=== PATIENT | female | born 1975 | race Caucasian/White ===

== ENCOUNTER → 2022-12-02 11:23 | Outpatient (BNVA) | payer MEDICAID, SELFPAY | PROVIDERS: PCP Internal Medicine; Visit Provider Nurse Practitioner Family | DX: Z13.89 Encounter for screening for other disorder (principal) ==

== ENCOUNTER 2024-12-26 11:34 | Outpatient (REF) | payer SELFPAY ==
--- OUTSIDE RECORDS SUMMARY | 2024-12-26 13:21 | XMS_ITS | Encounter Summary ---
Author Organization [employer] Address [address] [place] [address] [place] [address] Care Team Providers Care Product Safety And Standards Engineer Name Role Phone Laura Rodriguez MD Primary Care Provider Reason for Visit * Reason Onset Date Comments Appointment Request 01/07/2023 Encounter Details Date Type Department Care Team (Late Contact Info) Description 01/07/2023 Telephone [facility] MED & PEDS [address] [place] [address] Laura Rodriguez MD [address] [place] [address] Appointment Request Social History Tobacco Use Types Packs/Day Years Used Date Smoking Tobacco: Never Assessed Comments Unknown Sex and Gender Information Value Date Recorded Sex Assigned at Female 08/18/2022 10:38 AM EDT Legal Sex Female 10:38 AM EDT Gender Identity Female 08/18/2022 10:38 AM EDT Sexual Orientation Straight 08/18/2022 10 :38 AM EDT documented as of this encounter Miscellaneous Notes * Telephone Encounter - Maria C Hermosillo - 01/07/2023 4:18 PM EDT Tc from pt requesting to r/s appt for a Follow up on 01/12/2023. Orchestrator tried booking and pt prefers mondays and Thursday. Please contact pt at [phone] Yakut Speaker documented in this encounter Plan of Treatment Upcoming Encounters Date Type Department Care Team (Late st Contact Info) Description 01/11/2025 2:30 PM EDT Clinical Support [facility] PED[facility] [address] [place] [address] documented as of this encounter Visit Diagnoses Not on filedocumented in this encounter Care Teams Product Safety And Standards Engineer Relationship Specialty Start Date End Date Laura Rodriguez MD [address] [place] [address] PCP - General Internal Medicine 08/06/21 documented as of this encounter
--- OUTSIDE RECORDS SUMMARY | 2024-12-26 13:21 | XMS_ITS | Encounter Summary ---
Author Organization [facility] Address [address] [place] [address] [address] [place] [id number] Care Team Providers Care Semiconductor Lab Technician Name Role Phone Laura Rodriguez MD Primary Care Provider Encounter Details Date Type Department Care Team (Late st Contact Info) Description 01/14/2023 Orders Only [facility] MED & PEDS [address] [place] [address] Alyssa Ryan LPN Social History Tobacco Use Types Packs/Day Years Used Date Smoking Tobacco: Never Assessed Comments Unknown Sex and Gender Information Value Date Recorded Sex Assigned at Female 08/18/2022 10:38 AM EDT Legal Sex Female 10:38 AM EDT Gender Identity Female 08/18/2022 10:38 AM EDT Sexual Orientation Straight 08/18/2022 10 :38 AM EDT documented as of this encounter Plan of Treatment Upcoming Encounters Date Type Department Care Team (Late st Contact Info) Description 01/11/2025 2:30 PM EDT Clinical Support [facility] MED & PEDS [address] [place] [address] documented as of this encounter Visit Diagnoses Not on filedocumented in this encounter Care Teams Semiconductor Lab Technician Relationship Specialty Start Date End Date Laura Rodriguez MD [address] [place] [address] PCP - General Internal Medicine 08/06/21 documented as of this encounter
--- OUTSIDE RECORDS SUMMARY | 2024-12-26 13:21 | XMS_ITS | Encounter Summary ---
Author Organization [employer] [facility] Address [address] [place] [address] Care Team Providers Care Shirt Cleaner Name Role Phone Laura Rodriguez MD Primary Care Provider Reason for Visit * Reason Comments Med Refill Encounter Details Date Type Department Care Team (Late st Contact Info) Description 04/19/2024 Refill [facility] MED & PEDS [address] [place] [address] Laura Rodriguez MD [address] [place] [address] Seasonal allergies Social History Tobacco Use Types Packs/Day Years Used Date Smoking Tobacco: Never Passive Smoke Exposure: Never Smokeless Tobacco: Never Comments Unknown Sex and Gender Information Value [...] Description 01/11/2025 2:30 PM EDT Clinical Support [facility] MED & PEDS [address] [place] [address] documented as of this encounter Visit Diagnoses Diagnosis Seasonal allergies Allergic rhinitis, cause unspecified documented in this encounter Care Teams Shirt Cleaner Relationship Specialty Start Date End Date Laura Rodriguez MD [address] [place] [address] PCP - General Internal Medicine 08/06/21 documented as of this encounter
--- OUTSIDE RECORDS SUMMARY | 2024-12-26 13:21 | XMS_ITS | Encounter Summary ---
Author Organization [employer] [facility] Address [address] [place] [address] 7 [place] [address] Care Team Providers Care Warehouse Material Handler Name Role Phone Laura Rodriguez MD Primary Care Provider Reason for Visit * Reason Onset Date Comments appt cx will call rs 07/22/2024 Encounter Details Date Type Department Care Team (Late st Contact Info) Description 07/22/2024 Telephone [facility] [address] [place] [address] Antoinette Nix appt cx will call rs Social History Tobacco Use Types Packs/Day Years [...] encounter Miscellaneous Notes * Telephone Encounter - Candace Su - 07/22/2024 9:17 AM EDT Patient cancelled appt scheduled for comp on Antoinette schedule for 07/25 due to emergency trip. Per [facility] has to call back to if they are looking for 2pm. Perio spots are not open in advance. documented in this encounter Plan of Treatment Upcoming Encounters Date Type Department Care Team (Late st Contact Info) Description 01/11/2025 2:30 PM EDT Clinical Support [facility] MED [facility]ED[facility] [address] [place] [address] documented as of this encounter Visit Diagnoses Not on filedocumented in this encounter Care Teams Warehouse Material Handler Relationship Specialty Start Date End Date Laura Rodriguez MD [address] [place] [address] PCP - General Internal Medicine 08/06/21 documented as of this encounter
--- OUTSIDE RECORDS SUMMARY | 2024-12-26 13:21 | XMS_ITS | Encounter Summary ---
Author Organization [employer] Address [address] [place] [address] [place] [address] Care Team Providers Care Life Trainer Name Role Phone Laura Rodriguez MD Primary Care Provider Reason for Visit * Reason Comments Pre-visit Planning Pre visit planning L VM Encounter Details Date Type Department Care Team (Late st Contact Info) Description 11/30/2024 Patient Outreach [facility] MED[facility]INE [address] [place] [address] Laura Rodriguez MD [address] [place] [address] Pre-visit Planning (Pre visit planning LVM ) Social History Tobacco Use Types Packs/Day Years Used Date Smoking Tobacco: Never Passive Smoke Exposure: Never Smokeless Tobacco: Never Comments Unknown Sex and Gender Information Value Date Recorded Sex Assigned at Female 08/18/2022 10:38 AM EDT Legal Sex Female 10:38 AM EDT Gender Identity Female 08/18/2022 10:38 AM EDT Sexual Orientation Straight 08/18/2022 10 :38 AM EDT documented as of this encounter Progress Notes * Glenis Albert - 11/30/2024 11:46 AM EST CC Glenis Silva placed outbound call to patient to complete pre-visit planning. No answer at this time.Patient name and were not confirmed. CC left voicemail requesting return call. Direct contact information provided. documented in this encounter Plan of Treatment Upcoming Encounters Date Type Department Care Team (Late st Contact Info) Description 01/11/2025 2:30 PM EDT Clinical Support [facility] MED & PEDS [address] [place] [address] documented as of this encounter Visit Diagnoses Not on filedocumented in this encounter Care Teams Life Trainer Relationship Specialty Start Date End Date Laura Rodriguez MD [address] [place] [address] PCP - General Internal Medicine 08/06/21 documented as of this encounter
--- OUTSIDE RECORDS SUMMARY | 2024-12-26 13:21 | XMS_ITS | Encounter Summary ---
Author Organization [employer] [facility] Address [address] [place] [address] [address] [place] [address] Care Team Providers Care Project Reservoir Engineer Name Role Phone Laura Rodriguez MD Primary Care Provider Reason for Referral * Imaging (Routine) - Closed Specialty Diagnoses / Procedures Referred By Contac t Referred To Contact Radiology Diagnoses Encounter for screening mammogram for malignant neoplasm of breast Procedures BI Mammogram Screening Tomosynthesis Bilateral Laura Rodriguez MD [address] [place] [address] Phone: tel: fax: [address] Phone: tel: fax: Referral ID Status Reason Start Date Expiration Date Visits Re quested Visits Authorized [id number] Closed 12/14/2024 12/14/2025 1 1 Reason for Visit * Reason Comments Annual Exam Encounter Details Date Type Department Care Team (Late st Contact Info) Description 12/14/2024 10:45 AM EST Office Visit [facility] MED & PEDS [address] [place] [address] Laura Rodriguez MD [address] [place] [address] Obesity (BMI 30-39.9) (Primary Dx); Physical exam, annual; Primary hypertension; Seasonal allergies; Seasonal allergic reaction; Screening for colon cancer; Encounter for screening mammogram for malignant neoplasm of breast; Encounter for immunization Social History Tobacco Use Types Packs/Day Years Used Date Smoking Tobacco: Never Passive Smoke Exposure: Never Smokeless Tobacco: Never Tobacco Cessation:Counseling Given: No Alcohol Answer Date Recorded Q1: How often do you have a drink containing alc ohol? 2 12/14/2024 Q2: How many drinks containi ng alcohol do you have on a typical day when you are drinking? 0 12/14/2024 Q3: How often do you have six or more drinks on one occasion? 2 12/14/2024 Depression Answer Date Recorded Patient Health Questionnaire-9 Score 0 12/14/2024 Patient Health Questionnaire-9 Score 0 12/14/2024 Last PHQ-9: Questionnaire Data Not on file 0 12/14/2024 Housing Stability Answer Date Recorded What is your housing situation today? I have jody silver 12/14/[address] you li ve. Do you have problems with any of the following? None of the above 12/14/2024 Food Insecurity Answer Date Recorded Within the past 12 months, y ou worried that your food would run out before you got money to buy more: Never True 12/14/2024 Within the past 12 months,th e food you bought just didn't last and you didn't have enough money to get more: Never True Transportation Answer Date Recorded In the past 12 months, has l ack of transportation kept you from medical appts, meetings, work or from getting things needed for daily living? No 12/14/2024 Utilities Answer Date Recorded In the past 12 months, has t he electric, gas, oil or water company threatened to shut off services in your home? No 12/14/2024 Depression Answer Date Recorded Patient Health Questionnaire-2 Score 0 12/14/2024 Internet Access Answer Date Recorded Internet Access Q1 Yes 12/14/2024 Internet Access Q2 Not on file 12/14/2024 Comments Unknown Sex and Gender Information Value Date Recorded Sex Assigned at Female 08/18/2022 10:38 AM EDT Legal Sex Female 10:38 AM EDT Gender Identity Female 08/18/2022 10:38 AM EDT Sexual Orientation Straight 08/18/2022 10 :38 AM EDT documented as of this encounter Last Filed Vital Signs Vital Sign Reading Time Taken Comments Blood Pressure 151/81 12/14/2024 11:02 AM EST Pulse 78 12/14/2024 11:02 AM EST Temperature 36.6 ??C (97.9 ??F) 12/14/2024 11:[address] Respiratory Rate 20 12/14/2024 11:02 AM EST Oxygen Saturation 98% 12/14/2024 11:02 AM EST Inhaled Oxygen Concentration - - Weight 71.7 kg (158 lb) 12/14/2024 11:02 AM EST Height 149.9 cm (4' 11 ) 12/14/2024 11:02 AM EST Body Mass Index 31.91 12/14/2024 11:02 AM EST documented in this encounter Progress Notes * Laura Rodriguez MD - 12/14/2024 10:45 AM EST Subjective Patient ID: Adriana Burks is a 48 y.o. female who presents for Annual Exam. HPI Pt is doing overall well. No recent acute event. Has been off her BP medication for several months. Patient Active Problem List Diagnosis Primary hypertension Seasonal allergic reaction Current Outpatient Medications on File Prior to Visit Medication Sig Dispense Refill Ketotifen Fumarate (Eye Itch Relief) 0.035 % solution Administer 1 drop into both eyes [address] ONE DROP IN EACH EYE TWICE DAILY FOR 10 DAYS 5 mL 0 [DISCONTINUED] hydroCHLOROthiazide (Microzide) 12.5 MG capsule TAKE ONE CAPSULE EVERY DAY 90 capsule 1 [DISCONTINUED] loratadine (Claritin) 10 MG tablet TAKE ONE TABLET EVERY MORNING 90 tablet 1 No current facility-administered medications on file prior to visit. No Known Allergies Review of Systems Constitutional: Negative for activity change, appetite change, chills and diaphoresis. HENT: Negative for dental problem, drooling, ear discharge, ear pain and hearing loss. Eyes: Negative for pain, discharge and itching. Respiratory: Negative for cough, choking and chest tightness. Cardiovascular: Negative for chest pain and leg swelling. Gastrointestinal: Negative for blood in stool and diarrhea. Genitourinary: Negative for difficulty urinating, dyspareunia, dysuria, enuresis, flank pain, frequency and genital sores. Musculoskeletal: Negative for arthralgias, gait problem and joint swelling. Skin: Negative for pallor. Neurological: Negative for dizziness, seizures, speech difficulty, light- headedness and numbness. Psychiatric/Behavioral: Negative for behavioral problems, confusion and decreased concentration. Objective Physical Exam Constitutional: General: She is not in acute distress. Appearance: Normal appearance. She is not ill-appearing, toxic-appearing or diaphoretic. Cardiovascular: Rate and Rhythm: Normal rate and regular rhythm. Pulmonary: Effort: Pulmonary effort is normal. Musculoskeletal: General: Normal range of motion. Cervical back: Normal range of motion. Skin: General: Skin is warm. Neurological: General: No focal deficit present. Mental Status: She is alert. Psychiatric: Mood and Affect: Mood normal. Assessment/Plan Diagnoses and all orders for this visit: Obesity (BMI 30-39.9) - CBC auto differential; Future - Comprehensive Metabolic Panel; Future - Lipid Panel, Standard; Future - Hepatitis C Viral RNA, Quantitative, Real-Time PCR; Future - HIV-1/2 Antigen and Antibodies, Fourth Generation, with Reflexes; Future - TSH W/Reflex to FT4; Future Discussed calorie deficit, recommended reduction of 20-30% of maintenance calories; new car driver referral offered. Recommended to decrease soda and sugary beverage consumption. Recommended at least 20 g per meal of protein to assist with satiety. Recommended at least 150 min/week of moderate intensity exercise. Physical exam, annual Comments: Normal exam Pt is to maintain a healthy and balanced diet Primary hypertension Comments: uncontrolled. Poor compliance to medication Pt is to resume her HCTZ DASH diet. Orders: - hydroCHLOROthiazide (Microzide) 12.5 MG capsule; Take 1 capsule (12.5 mg) by mouth Once per day. - CBC auto differential; Future - Comprehensive Metabolic Panel; Future - Lipid Panel, Standard; Future - Hepatitis C Viral RNA, Quantitative, Real-Time PCR; Future - HIV-1/2 Antigen and Antibodies, Fourth Generation, with Reflexes; Future - TSH W/Reflex to FT4; Future Seasonal allergies Comments: Advised to contact the office in 2 days if no improvement. Orders: - loratadine (Claritin) 10 MG tablet; Take 1 tablet (10 mg) by mouth in the morning. Seasonal allergic reaction Screening for colon cancer - Cologuard?? colon cancer screening; Future Encounter for screening mammogram for malignant neoplasm of breast - BI Mammogram Screening Tomosynthesis Bilateral; Future Encounter for immunization - PCV-20 VACCINE 6 wks + - TDAP VACCINE 7 yrs + documented in this encounter Plan of Treatment Upcoming Encounters Date Type Department Care Team (Late st Contact Info) Description 01/11/2025 2:30 PM EDT Clinical Support [facility] MED & PEDS [address] [place] [address] Scheduled Orders Name Type Priority Associated Diagnoses Orde r Schedule CBC auto differential Lab Routine Primary hypertension Obesity (BMI 30-39.9) Expected: 12/14/2024 (Approximate), Expires: 12/14/2025 Comprehensive Metabolic Panel Lab Routine Primary hypertension Obesity (BMI 30-39.9) Expected: 12/14/2024 (Approximate), Expires: 12/14/2025 Lipid Panel, Standard Lab Routine Primary hypertension Obesity (BMI 30-39.9) Expected: 12/14/2024 (Approximate), Expires: 12/14/2025 Hepatitis C Viral RNA, Quantitative, Real-Time PCR Lab Routine Primary hypertension Obesity (BMI 30-39.9) Expected: 12/14/2024 (Approximate), Expires: 12/14/2025 HIV-1/2 Antigen and Antibodies, Fourth Generation, with Reflexes Lab Routine Primary hypertension Obesity (BMI 30-39.9) Expected: 12/14/2024 (Approximate), Expires: 12/14/2025 TSH W/Reflex to FT4 Lab Routine Primary hypertension Obesity (BMI 30-39.9) Expected: 12/14/2024 (Approximate), Expires: 12/14/2025 Cologuard?? colon cancer screening Lab Routine Screening for colon cancer Expected: 12/14/2024 (Approximate), Expires: 12/14/2025 BI Mammogram Screening Tomosynthesis Bilateral Imaging Routine Encounter for screening mammogram for malignant neoplasm of breast Expected: 12/14/2024, Expires: 02/11/2026 documented as of this encounter Visit Diagnoses Diagnosis Obesity (BMI 30-39.9)- Primary Physical exam, annual Primary hypertension Unspecified essential hypertension Seasonal allergies Allergic rhinitis, cause unspecified Seasonal allergic reaction Allergic rhinitis, cause unspecified Screening for colon cancer Special screening for malignant neoplasms, colon Encounter for screening mammogram for malignant neoplasm of breast Encounter for immunization documented in this encounter Additional Health Concerns Assessment Noted Time PHQ-9 Depression Total Score: 0 12/14/19 25 11:04 AM EST documented as of this encounter Care Teams Project Reservoir Engineer Relationship Specialty Start Date End Date Laura Rodriguez MD [address] [place] [id number] PCP - General Internal Medicine 08/06/21 documented as of this encounter
--- OUTSIDE RECORDS SUMMARY | 2024-12-26 13:21 | XMS_ITS | Encounter Summary ---
Author Organization [employer] [facility] Address [address] [place] [address] Care Team Providers Care Fabrication Technician Name Role Phone Laura Rodriguez MD Primary Care Provider Reason for Visit * Reason Comments Med Refill Encounter Details Date Type Department Care Team (Late st Contact Info) Description 11/02/[address] [facility] MED & PEDS [address] [place] [address] Laura Rodriguez MD [address] [place] [address] Primary hypertension Social History Tobacco Use Types Packs/Day Years [...] Description 01/11/2025 2:30 PM EDT Clinical Support [facility] MED & PEDS [address] [place] [address] documented as of this encounter Visit Diagnoses Diagnosis Primary hypertension Unspecified essential hypertension documented in this encounter Care Teams Fabrication Technician Relationship Specialty Start Date End Date Laura Rodriguez MD [address] [place] [address] PCP - General Internal Medicine 08/06/21 documented as of this encounter
--- OUTSIDE RECORDS SUMMARY | 2024-12-26 13:21 | XMS_ITS | Encounter Summary ---
Author Organization [employer] [facility] Address [address] [facility] [address] [place] [address] Care Team Providers Care Sock Mender Name Role Phone Laura Rodriguez MD Primary Care Provider Encounter Details Date Type Department Care Team (Latest Contact Info) Description 12/14/2024 Travel Social History Tobacco Use Types Packs/Day Years Used Date Smoking Tobacco: Never Passive Smoke Exposure: Never Smokeless Tobacco: Never Alcohol Answer Date Recorded Q1: How often [...] Upcoming Encounters Date Type Department Care Team ([facility] st Contact Info) Description 01/11/2025 2:30 PM EDT Clinical Support [facility] MED & PEDS [address] [place] [address] documented as of this encounter Visit Diagnoses Not on filedocumented in this encounter Additional Health Concerns Assessment Noted Time PHQ-9 Depression Total Score: 0 12/14/19 25 11:04 AM EST documented as of this encounter Care Teams Sock Mender Relationship Specialty Start Date End Date Laura Rodriguez MD [address] [place] [address] PCP - General Internal Medicine 08/06/21 documented as of this encounter
--- OUTSIDE RECORDS SUMMARY | 2024-12-26 13:21 | XMS_ITS | Clinical Summary ---
Author Organization [facility] Address [address] [place] [address] Care Team Providers Care Bedspread Inspector Name Role Phone Laura Rodriguez MD Primary Care Provider [phone] Allergies No known active allergies Medications Ketotifen Fumarate (Eye Itch Relief) 0.035 % solution Administer 1 drop into both eyes [address] ONE DROP IN EACH EYE TWICE DAILY FOR 10 DAYS 5 mL 04/20/20 24 Active hydroCHLOROthia zide (Microzide) 12.5 MG capsuleIndicati ons:Primary hypertension Take 1 capsule (12.5 mg) by mouth Once per day. 90 capsule 1 12/14/19 25 Active loratadine (Claritin) 10 MG tabletIndicatio ns:Seasonal allergies Take 1 tablet (10 mg) by mouth in the morning. 90 tablet 1 12/14/19 25 Active hydroCHLOROthia zide (Microzide) 12.5 MG capsuleIndicati ons:Primary hypertension TAKE ONE CAPSULE EVERY DAY 90 capsule 1 04/20/20 24 025 Discontinued(R eorder (will not trigger notification to Pharmacy)) loratadine (Claritin) 10 MG tabletIndicatio ns:Seasonal allergies TAKE ONE TABLET EVERY MORNING 90 tablet 1 04/20/20 24 025 Discontinued(R eorder (will not trigger notification to Pharmacy)) loratadine (Claritin) 10 MG tabletIndicatio ns:Seasonal allergies Take 1 tablet (10 mg) by mouth in the morning. 90 tablet 1 12/14/19 25 025 Discontinued(R eorder (will not trigger notification to Pharmacy)) Active Problems Problem Noted Date Diagnosed Date Primary hypertension 12/14/2024 Seasonal allergic reaction 12/14/2024 Encounters Date Type Department Care Team Description 12/14/2024 10:45 AM EST Office Visit [facility] [address] [place] [address] Laura Rodriguez MD Obesity (BMI 30-39.9) (Primary Dx); Physical exam, annual; Primary hypertension; Seasonal allergies; Seasonal allergic reaction; Screening for colon cancer; Encounter for screening mammogram for malignant neoplasm of breast; Encounter for immunization 12/14/2024 Travel 12/12/2024 Telephone [facility] [address] [place] [address] Laura Rodriguez MD chart prep 11/30/2024 Patient Outreach [facility] [address] [place], [place] [phone] Laura Rodriguez MD Pre-visit Planning (Pre visit planning LVM ) 11/02/2024 Refill [facility] [address] [place] [address] Laura Rodriguez MD Primary hypertension from Last 3 Months Immunizations Name Administration Dates Next Due Pneumococcal Conjugate PCV 20 12/14/2024 Tdap 12/14/2024 Family History Medical History Relation Name Comments chagas disease Father Hypertension Mother Relation Name Status Comments Father Mother Social History Tobacco Use Types Packs/Day Years [...] Orientation Straight 08/18/2022 10 :38 AM EDT Last Filed Vital Signs Vital Sign Reading [...] Mass Index 31.91 12/14/2024 11:02 AM EST Plan of Treatment Upcoming Encounters Date Type Department Care Team (Late st Contact Info) Description 01/11/2025 2:30 PM EDT Clinical Support [facility] [address] [place] [address] Health Maintenance Due Date Last Done Comments CT Colonography 1973 Colonoscopy 1973 Colorectal Cancer Screening 1973 Dental Oral Exam 1973 Dental Prophylaxis 1973 Dental X-Ray: Bitewings 1973 Dental X-Ray: Full Mouth 1973 FIT DNA/Cologuard 1973 FIT 1973 FOBT 1973 HIV Screening 1973 Sigmoidoscopy 1973 Family Planning (PISQ) 1988 Hepatitis C Screening 12/22/1991 Hepatitis B Vaccines (1 of 3 - 19+ 3-dose series) 1992 Pap Smear 1994 Cervical Cancer Screening 12/22/2003 HPV/Cotest 12/22/2003 Zoster Vaccines (1 of 2) 12/22/2023 COVID-19 Vaccine ( - 2023-2 5 season) 2024 Influenza Vaccine (#1) 2024 Mammogram 10/06/2024 10/06/2022, 10/06/2022 Alcohol/Substance Use Screening 12/14/2025 12/14/2024 Depression Screening 12/14/2025 12/14/2024, 12/14/2024 SDOH Screening 12/14/2025 12/14/2024 Tobacco Screening 12/14/2025 12/14/2024 Lipid Panel 03/18/2027 03/18/2022 DTaP/Tdap/Td Vaccines (2 - T d or Tdap) 12/14/2034 12/14/2024 RSV Patients and Patients Aged 60 years or older (1 - 1-dose 75+ series) 2048 Pneumococcal Vaccine: 50+ Years Completed 12/14/2024 HIB Vaccines Aged Out No longer eligi ble based on patient's age to complete this topic HPV Vaccines Aged Out No longer eligi ble based on patient's age to complete this topic Hepatitis A Vaccines Aged Out No long er eligible based on patient's age to complete this topic IPV Vaccines Aged Out No longer eligi ble based on patient's age to complete this topic Meningococcal Vaccine Aged Out No archana kimberly eligible based on patient's age to complete this topic RSV under 20 months Aged Out No longe r eligible based on patient's age to complete this topic Rotavirus Vaccines Aged Out No longer eligible based on patient's age to complete this topic Procedures Procedure Name Priority Date/Time Associated Diagnosis Comments BI MAMMOGRAM SCREENING TOMOSYNTHESIS BILATERAL Routine 10/06/2022 9:26 AM EST LIPID PANEL, STANDARD Routine 03/18/2022 11:51 AM EDT from Last 3 Months or Most Recently Relevant to Health Maintenance Results * BI Mammogram Screening Tomosynthesis Bilateral (10/06/2022 9:26 AM EST) Anatomical Region Laterality Modality Breast Bilateral Mammography 10/06/2022 9:26 AM EST Narrative 10/07/2022 1:15 PM EST ? [facility] ? [address] ?[place] [address] ? Mammography Report ? Signed ? Patient: Adriana Almendarez ?MR#: [id number] ?? [id number] ? : 1975 ?Acct:[id number] ? Age/Sex: 46 / F ?ADM Date: 10/06/22 ? Loc: HO.MAMMO ? Attending Dr: Laura Rodriguez MD ? Ordering Physician: Laura Rodriguez MD ?Results: 1 ?? Negative ? Date of Service: 10/06/22 ?Follow Up: 1 Year From Orig ?? inal Mammogram ? Procedure(s): MM tomosynthesis screening BI ?? Accession Number(s): [id number] ? cc: Laura Rodriguez MD ? EXAMINATION: ?? MM SCREENING DIGITAL BREAST TOMOSYNTHESIS, BILATERAL ? CLINICAL INFORMATION: ? Screening. Asymptomatic. ? The lifetime risk of breast cancer based on the Tyrer-Cuzick Model is ?? 12%. ? COMPARISON: ?? Mammography: 09/23/2021, outside exam 05/02/2016 ([facility]) ? TECHNIQUE: ?? Digital breast tomosynthesis is performed in both the craniocaudal and ?? mediolateral oblique views along with computer-aided detection (CAD). ?? Synthesized 2D images are generated from the tomosynthesis. ? FINDINGS: ?? There are scattered areas of fibroglandular density (ACR BI-RADS breast ?? composition Category b). ? There are no significant masses, abnormal calcifications, or other ?? abnormalities. ??Parenchymal pattern is similar to prior studies. There ?? is no developing density or architectural abnormality. The axilla and ?? skin contours are unremarkable. No significant changes. ? MM/MM tomosynthesis screening BI ?? IMPRESSION: ?? No mammographic evidence of malignancy. ? ASSESSMENT: ? BI-RADS 1: Negative ? RECOMMENDATION: ?? Routine annual mammography screening. ? This patient's information was entered into a reminder system with a ?? target due date for their next mammogram. ? Dictated By: ?Jesse Pinzon MD ? Signed By: ?<Electronically signed by Jesse Pinzon MD in OV> ?10/07/22 1312 ? DD/ 5 ? TD/TT: ? Stain Sprayer: SAMPSON ? Procedure Note Marcus, Image - 10/31/2022 [facility] [address] [place] [address] [place]. [place], [place] [address] Mammography Report Signed Patient: Adriana Almendarez#: [id number] : 1975Acct:[id number] Age/Sex: 46 / FADM Date: 10/06/22 Loc: [facility] Attending Dr: Laura Rodriguez MD Ordering Physician: Laura Rodriguez MDResults: 1 Negative Date of Service: 10/06/22Follow Up: 1 Year From Orig ina Mammogram Procedure(s): MM tomosynthesis screening BI Accession Number(s): [id number] cc: Laura Rodriguez MD EXAMINATION: MM SCREENING DIGITAL BREAST TOMOSYNTHESIS, BILATERAL CLINICAL INFORMATION: Screening. Asymptomatic. The lifetime risk of breast cancer based on the Tyrer-Cuzick Model is 12%. COMPARISON: Mammography: 09/23/2021, outside exam 05/02/2016 ([facility]) TECHNIQUE: Digital breast tomosynthesis is performed in both the craniocaudal and mediolateral oblique views along with computer-aided detection (CAD). Synthesized 2D images are generated from the tomosynthesis. FINDINGS: There are scattered areas of fibroglandular density (ACR BI-RADS breast composition Category b). There are no significant masses, abnormal calcifications, or other abnormalities. Parenchymal pattern is similar to prior studies. There is no developing density or architectural abnormality. The axilla and skin contours are unremarkable. No significant changes. MM/MM tomosynthesis screening BI IMPRESSION: No mammographic evidence of malignancy. ASSESSMENT: BI-RADS 1: Negative RECOMMENDATION: Routine annual mammography screening. This patient's information was entered into a reminder system with a target due date for their next mammogram. Dictated By: Jesse Pinzon MD Signed By: <Electronically signed by Jesse Pinzon MD in OV> 10/07/22 1312 DD/ 0926 TD/TT: Stain Sprayer: SAMPSON [facility] External Provider IMG BI PROCEDURES Edited Result - Final * (ABNORMAL) LIPID PANEL, STANDARD (03/18/2022 11:51 AM EDT) Chol/HDLC Ratio 5.0(H) <5.0 (calc) [facility] Cholesterol, Total 200(H) <200 mg/dL [facility] HDL Cholesterol 40(L) > OR = 50 mg/dL [facility] LDL Cholesterol 122(H) mg/dL (calc) [facility] Comment: Reference range: <100 ?? Desirable range <100 mg/dL for primary prevention; ?? <70 mg/dL for patients with CHD or diabetic patients ?? with > or = 2 CHD risk factors. ?? LDL-C is now calculated using the Ritesh ?? calculation, which is a validated novel method providing ?? better accuracy than the Friedewald equation in the ?? estimation of LDL-C. ?? Dequan PERRY et al. YOMI. 2013;310(19): 0916-7389 ?? (http://Zagster.4tiitoo/faq/ZZD772) Non-HDL Cholesterol 160(H) <130 mg/dL (calc) [facility] Comment: For patients with diabetes plus 1 major ASCVD risk ?? factor, treating to a non-HDL-C goal of <100 mg/dL ?? (LDL-C of <70 mg/dL) is considered a therapeutic ?? option. Triglycerides 233(H) <150 mg/dL [facility] Comment: ?? If a non-fasting specimen was collected, consider repeat triglyceride testing on a fasting specimen if clinically indicated. ?? Sonja et al. J. of Clin. Lipidol. 2015;9:129-169. ?? 03/18/2022 11:5 1 AM EDT us Ana Caban MD LAB BLOOD ORDERABLES Final Resul t [facility] [address] from Last 3 Months or Most Recently Relevant to Health Maintenance Insurance [employer] [employer] STAND ADULT Care Teams Bedspread Inspector Relationship Specialty Start Date End Date Laura Rodriguez MD [address] [place] [id number] PCP - General Internal Medicine 08/06/21
--- OUTSIDE RECORDS SUMMARY | 2024-12-26 13:21 | XMS_ITS | Encounter Summary ---
Author Organization [facility] Address [address] [place] [address] Care Team Providers Care Bird Cage Assembler Name Role Phone Laura Rodriguez MD Primary Care Provider Reason for Visit * Reason Comments Med Refill Encounter Details Date Type Department Care Team (Late st Contact Info) Description 07/24/2023 Refill [facility] [address] [place] [address] Laura Rodriguez MD [address] [place] [address] Primary hypertension (Primary Dx) Social History Tobacco Use Types Packs/Day Years [...] Description 01/11/2025 2:30 PM EDT Clinical Support [facility] [address] [place] [address] documented as of this encounter Visit Diagnoses Diagnosis Primary hypertension- Primary Unspecified essential hypertension documented in this encounter Care Teams Bird Cage Assembler Relationship Specialty Start Date End Date Laura Rodriguez MD [address] [place] [address] PCP - General Internal Medicine 08/06/21 documented as of this encounter
--- OUTSIDE RECORDS SUMMARY | 2024-12-26 13:21 | XMS_ITS | Encounter Summary ---
Author Organization [facility] Address [address] [place] [id number] Care Team Providers Care Scorer Helper Name Role Phone Laura Rodriguez MD Primary Care Provider Reason for Visit * Reason Onset Date Comments chart prep 12/12/2024 Encounter Details Date Type Department Care Team (Late Contact Info) Description 12/12/2024 Telephone [facility] [address] [place] [address] Laura Rodriguez MD [address] [place] [address] chart prep Social History Tobacco Use Types Packs/Day Years [...] encounter Miscellaneous Notes * Telephone Encounter - Josh Ferrer [place] - 12/12/2024 11:40 AM EST Chart Prep Labs: not applicable Images: done Vaccines due: yes Referrals: complete Screenings: colonoscopy , mammogram , pap smear Overdue care gaps: Sbirt, SDOH, PHQ-9 documented in this encounter Plan of Treatment Upcoming Encounters Date Type Department Care Team (Late st Contact Info) Description 01/11/2025 2:30 PM EDT Clinical Support [facility] [address] [place] [address] documented as of this encounter Visit Diagnoses Not on filedocumented in this encounter Care Teams Scorer Helper Relationship Specialty Start Date End Date Laura Rodriguez MD [address] [place] [address] PCP - General Internal Medicine 08/06/21 documented as of this encounter
[2024-12-26 14:24] LABS: MANUAL DIFF FLAG NO
[2024-12-26 14:38] LABS: Basophils Percent Auto 0.4 % (0-2); Eosinophils Absolute Auto 0.4 X10*3/uL (0.0-0.4); Eosinophils Percent Auto 4.8 % (0-4); Hematocrit 41.7 % (37.0-47.0); Hemoglobin 13.9 g/dl (12.0-16.0); Imm Gran Abs Auto 0.01 X10*3/uL (0.00-0.03); Imm Gran Pct Auto 0.1 % (0.0-0.4); Lymphocytes Absolute Auto 2.5 X10*3/uL (1.2-4.9); Lymphocytes Percent Auto 31.5 % (20-40); Mean Corpuscular HGB Conc 33.3 g/dl (31.0-35.0); Mean Corpuscular Hemoglobin 28.3 pg (27.0-33.0); Mean Corpuscular Volume 84.8 fL (80.0-98.0); Mean Platelet Volume 10.5 fL (9.4-12.3); Monocytes Absolute Auto 0.5 X10*3/uL (0.1-1.2); Monocytes Percent Auto 6.8 % (2-11); Neutrophils Absolute Auto 4.5 x10*3/uL (2.0-8.3); Neutrophils Percent Auto 56.4 % (45-73); Platelet Count 288 X10*3/uL (160-400); Red Blood Count 4.92 X10*6/uL (4.20-5.50); Red Cell Distribution Width 13.3 % (11.0-16.0); White Blood Count 7.9 X10*3/uL (4.8-10.8)
[2024-12-26 15:01] LABS: Alanine Aminotransferase 66 U/L (0-31); Albumin Level 4.1 g/dL (3.5-5.0); Alkaline Phosphatase 93 U/L (39-117); Anion Gap 10 (12-20); Aspartate Amino Transferase 37 U/L (5-31); Bilirubin Total 0.3 mg/dL (0.0-1.0); Blood Urea Nitrogen 14 mg/dL (9-16); Calcium 9.2 mg/dL (8.4-10.2); Carbon Dioxide 24 mmol/L (22-29); Chloride 108 mmol/L (96-108); Cholesterol 172 mg/dL (<200); Estimated Glomerular Filt Rate > 60; Glucose Random 95 mg/dL (60-115); HDL Cholesterol 35 mg/dL (>40); LDL Cholesterol Calculated 94 mg/dL (<100); Potassium 3.4 mmol/L (3.3-5.1); Sodium 139 mmol/L (135-145); Total Protein 7.6 g/dL (6.5-8.0); Triglycerides 216 mg/dL (<150)
[2024-12-26 15:18] LABS: TSH reflex Free T4 0.54 uIU/mL (0.32-4.0)
[2024-12-27 11:18] LABS: HIV AB/AG Nonreactive (Nonreactive); HIV Num 1 0.06 S/CO (0.00-0.99)
[2024-12-28 14:09] LABS: HCV Log PCR <1.18 NOT DETECTED Log IU/mL (NOT DETECTED); HepC Viral Load <15 NOT DETECTED IU/mL (NOT DETECTED)
== END 2024-12-26 11:35 | disposition home or self-care (01) ==
LOC: HO.CHCLDS 11:34
PROVIDERS: Visit Provider Internal Medicine
DX: E66.9 Obesity, unspecified (principal); I10 Essential (primary) hypertension
CPT/HCPCS: 36415; 80053; 80061; 84443; 85025; 87389; 87522